=== PATIENT | female | born 1975 | race Caucasian/White ===

== ENCOUNTER 2022-03-10 13:36 | Outpatient (CLI) | payer OTHER, SELFPAY ==
[2022-03-10 14:06] LABS: Basophils Percent Auto 0.5 % (0.2-1.2); Eosinophils Absolute Auto 0.1 K/mm3 (0-0.3); Eosinophils Percent Auto 1.9 % (0-4.4); Hemoglobin 12.8 g/dL (12.0-15.0); Immature Granulocyte Absolute 0.03 K/mm3 (0.00-0.031); Immature Granulocyte Percent A 0.4 % (0-0.5); Lymphocytes Absolute Auto 2.58 K/mm3 (0.9-3.2); Lymphocytes Percent Auto 35.3 % (18.3-44.2); Mean Corpuscular HGB Conc 33.7 g/dl (32-36); Mean Corpuscular Volume 97.9 fl (80-100); Mean Platelet Volume 10.1 fl (7.4-10.4); Monocytes Absolute Auto 0.6 K/mm3 (0.1-0.6); Monocytes Percent Auto 7.9 % (2.6-8.5); Neutrophils Absolute Auto 3.9 K/mm3 (1.3-6.7); Platelet Count Result 173 k/mm3 (150-375); Red Blood Count 3.88 M/mm3 (4.2-5.4); Red Cell Distribution Width 12.9 % (11.5-14.5); White Blood Count 7.3 K/mm3 (4.5-10.0)
== END 2022-03-10 13:37 | disposition home or self-care (01) ==
DX: N93.9 Abnormal uterine and vaginal bleeding, unspecified (principal)
CPT/HCPCS: 36415; 85025

== ENCOUNTER → 2022-08-14 09:12 | Outpatient (CLI) | payer OTHER, SELFPAY ==
--- NOTE | ~2022-08-14 | MR_ITS ---
EXAMINATION: MR pelvis wo/w con DATE: 08/14/2022 10:23 INDICATION: Complex left ovarian cyst TECHNIQUE: Magnetic resonance imaging (MRI) of the pelvis was performed without intravenous contrast. Fullfield sequences of the pelvis included axial and coronal T2-weighted SS FSE, coronal 2D FIESTA, axial T1-weighted FSPGR, axial dual-echo T1-weighted FSPGR and axial T1 weighted LAVA. Small field o f view sequences included axial, sagittal and coronal T2-weighted FSE centered on the uterus and adne xa. Postcontrast sequences included a time course axial T1-weighted LAVA with fullfield of view of t he pelvis. COMPARISON: None. FINDINGS: Visualized portion of the bowels including the appendix are normal. Bladder is normal. There are a fe w subcentimeter T2 hyperintense nonenhancing cystic lesions along the cervix and at the lower uterine segment. There is also a small amount of fluid within the endocervical canal with nonuniform somewha t nodular enhancing mucosal thickening within the endocervical canal. There are 3 nonenhancing cysts in the left kidney, the smallest a 2.0 cm homogeneously T2 hyperintense T1 hypointense simple appeari ng cyst. The 2 larger cysts measuring 3.9 cm and 2.3 cm in maximal diameters each demonstrate/fluid o r fluid/debris levels with T1 and T2 hyperintense proteinaceous/hemorrhagic nondependent fluid and sl ightly more heterogeneous slightly less T2 hyperintense and T1 hypointense fluid versus debris in the dependent aspect of the cysts. No nodular solid enhancing component to the cysts. 1 cm T2 hyperinten se nonenhancing right ovarian cyst. No free fluid in the pelvis. No pathologically enlarged pelvic or inguinal lymphadenopathy. Annular fissures and small central disc protrusions at L4-L5 and L5-S1. IMPRESSION: 1. Asymmetric nodular thickened enhancing mucosa along the endocervical canal which raises concern fo r malignancy along with a few small likely nabothian cysts. Correlate with pelvic exam and Pap smear. 2. Bilateral ovarian cysts including 2.3 cm and 3.9 cm complex likely hemorrhagic cysts with layering fluid and fluid/debris levels and with no solid enhancing soft tissue component. Reviewed, dictated and finalized at location A. IMPRESSION: 1. Asymmetric nodular thickened enhancing mucosa along the endocervical canal w hich raises concern for malignancy along with a few small likely nabothian cyst s. Correlate with pelvic exam and Pap smear. 2. Bilateral ovarian cysts including 2.3 cm and 3.9 cm complex likely hemorrhag ic cysts with layering fluid and fluid/debris levels and with no solid enhancin g soft tissue component.
== END ==
PROVIDERS: PCP Obstetrics & Gynecology; Visit Provider Obstetrics & Gynecology
DX: N83.201 Unspecified ovarian cyst, right side (principal); N83.202 Unspecified ovarian cyst, left side
CPT/HCPCS: 72197; A9577